=== PATIENT | female | born 1965 | race Caucasian/White ===

== ENCOUNTER 2021-12-30 12:08 | Emergency (ER) | payer MEDICAID, OTHER ==
[~2021-12-30] VITALS: Ht 165.1 cm; Wt 105.0 kg
[2021-12-30] MEDS ORDERED: ONDANSETRON HCL 4 MG/2 ML VIAL IV ONE (13:15)
[2021-12-30] MEDS ORDERED: MORPHINE SULFATE INJ 2 MG/ml SYRG IV ONE (13:15)
[2021-12-30 14:09] VITALS: BP 147/88
[2021-12-30] MEDS ORDERED: ACET-1080 PO (14:56)
== END 2021-12-30 15:11 | disposition home or self-care (01) ==
LOC: ER 12:08
DX: S16.1XXA Strain of muscle, fascia and tendon at neck level, initial encounter (principal); S39.012A Strain of muscle, fascia and tendon of lower back, initial encounter; M50.30 Other cervical disc degeneration, unspecified cervical region; E03.9 Hypothyroidism, unspecified; Z79.899 Other long term (current) drug therapy; Z88.0 Allergy status to penicillin; Z88.8 Allergy status to other drugs, medicaments and biological substances; V49.49XA Driver injured in collision with other motor vehicles in traffic accident, initial encounter; Y93.89 Activity, other specified; Y92.410 Unspecified street and highway as the place of occurrence of the external cause; Y99.8 Other external cause status
CPT/HCPCS: 72040; 72100; 96374; 96375; 99284; J2270; J2405